=== PATIENT | female | born 1990 | race Caucasian/White ===

== ENCOUNTER 2020-07-25 07:00 | Emergency (ER) | payer MEDICAID ==
[2020-07-25 07:34] VITALS: BP 146/59
== END 2020-07-25 07:34 | disposition home or self-care (01) ==
LOC: ED 07:00
DX: H92.02 Otalgia, left ear (principal)

== ENCOUNTER 2020-08-01 17:23 | Emergency (ER) | payer MEDICAID ==
[~2020-08-01] VITALS: Ht 165.1 cm; Wt 118.4 kg
[2020-08-01 17:30] VITALS: Ht 165.1 cm; Wt 118.4 kg
[2020-08-01 20:11] VITALS: BP 121/76
== END 2020-08-01 20:11 | disposition home or self-care (01) ==
LOC: ED 17:23
DX: N76.0 Acute vaginitis (principal)
CPT/HCPCS: 87491; 87591

== ENCOUNTER 2020-09-20 12:55 | Emergency (ER) | payer MEDICAID, SELFPAY ==
[~2020-09-20] VITALS: Ht 165.1 cm; Wt 113.4 kg
[2020-09-20 12:57] VITALS: Ht 165.1 cm; Wt 113.4 kg
[2020-09-20 16:48] VITALS: BP 135/88
== END 2020-09-20 16:48 | disposition home or self-care (01) ==
LOC: ED 12:55
DX: U07.1 COVID-19 (principal); E66.9 Obesity, unspecified; R10.817 Generalized abdominal tenderness; R19.7 Diarrhea, unspecified; Z98.51 Tubal ligation status
CPT/HCPCS: U0003